=== PATIENT | male | born 1965 | race Caucasian/White ===

== ENCOUNTER 2019-08-31 10:46 | Inpatient (IN) ==
[2019-08-31] MEDS ORDERED: VANCOMYCIN 1 GM/NS 1 GM/250 ML IVPB IV ONE ×2 (11:17→16:00)
[2019-08-31] MEDS ORDERED: MORPHINE IV ONE (11:18)
[2019-08-31] MEDS ORDERED: ZOFRAN IV ONE (11:18)
[2019-08-31] MEDS ORDERED: DECADRON IV ONE (11:18)
[2019-08-31] MEDS: ROCEPHIN 1 GM in NS 50 ML IV ONE ×2 (11:42→11:43)
[2019-08-31 11:46] LABS: BASO# 0.03 X1000 (0.0-0.2); BASO% 0.2 % (0.0-0.8); EOS# 0.23 X1000 (0.0-0.7); EOS% 1.8 % (0.0-10.0); HEMOGLOBIN 14.7 g/dL (14.0-18.0); IMM GRAN# 0.03 X1000 (0.0-0.04); IMM GRAN% 0.2 % (0.0-0.5); LYMPH# 2.77 X1000 (1.2-3.4); LYMPH% 21.6 % (20.5-51.1); MCH 30.1 PG (27-31); MCHC 34.2 g/dL (33-37); MCV 88.1 FL (81-99); MONO# 1.37 X1000 (0.11-0.59); MONO% 10.7 % (1.7-9.3); MPV 9.5 FL (7.4-10.4); NEUT# 8.37 X1000 (1.4-6.5); NEUT% 65.5 % (42.2-75.2); PLT 273 X1000 (130-400); RBC 4.88 XMIL (4.7-6.1); RDW 12.7 % (11.5-14.5)
[2019-08-31 12:08] LABS: AGAP 14; ALKALINE PHOSPHATASE 117 U/L (32-122); BUN 13 mg/dL (8-22); CALCIUM 9.5 mg/dL (8.8-10.2); CHLORIDE 100 mmol/L (98-107); COSMO 277; CREATININE 0.8 mg/dL (0.7-1.2); ESTIMATED GFR > 60; GLUCOSE 121 mg/dL (70-104); GOT 18 U/L (10-34); GPT 20 U/L (10-44); POTASSIUM 3.8 mmol/L (3.5-5.1); SODIUM 138 mmol/L (136-145); TCO2 24 mmol/L (25-35); TOTAL PROTEIN 7.2 g/dL (6.3-8.3)
--- NOTE | 2019-08-31 12:21 | Diag Imaging Result Doc PS360 ---
EXAM: CT MAXILLOFACIAL(SINUS) W/O CO - 08/31/2019 HISTORY: facial cellulitis TECHNIQUE: CT facial bones without contrast. No contrast administered per request of the referring provider. COMPARISON: 04/10/2017 CT head, 07/12/2013 CT head FINDINGS: There are multiple ununited nasal bone fractures. These appear similar to the 12/10/2013 CT head, compatible with old ununited fracture deformities. (The 04/10/2017 CT head did not included the nasal bones.) There is no other facial bone fracture identified. There is smooth deviation of the nasal septum to the left consistent with long-standing change. The paranasal sinuses appear clear. Evaluation of subcutaneous soft tissues is somewhat limited without administered intravenous contrast. There is apparent relatively generalized subcutaneous soft tissue swelling/edema. There is a possible 0.6 cm fluid collection in the anterior subcutaneous tissues at the left of midline near the inferior base of the nose. There is no evidence of retrobulbar orbital edema. The globes of the orbits appear grossly intact. 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 Facial cellulitis. Possible 6 mm abscess in anterior subcutaneous tissues at the left of midline near the inferior base of the nose. Electronically signed by Beni Watkins 08/31/2019 12:19 PM
[2019-08-31] MEDS ORDERED: VANCOMYCIN IV PER PHARMACY MISC SCH (13:52)
[2019-08-31] MEDS ORDERED: ZOFRAN IV PRN (13:52)
[2019-08-31] MEDS ORDERED: MORPHINE IV PRN (13:52)
[2019-08-31] MEDS ORDERED: TYLENOL PO PRN (13:52)
--- NOTE | 2019-08-31 14:52 | HISTORY AND PHYSICAL ---
ADDENDUM Patient came in with a white count. He has had a kind of facial cellulitis diagnosed about a week ago, was placed on clindamycin but has steadily gotten worse. He feels like there is a ball or some sort of pain descending at the base of his nose all the way back behind his eye. Today, he came in with facial cellulitis of the nose, left naris, lip. There was no periorbital edema. CT shows a small, less than cm abscess at the base of the naris with associated inflammation. He will be admitted for facial cellulitis with developing abscess. We will get ENT consult. He has been placed on vancomycin and Zosyn. We will continue that for the time being and follow. Only active medical problems is history of hepatitis but none currently. This is a service admission. cc: Reed Calle MD
--- NOTE | 2019-08-31 15:03 | HISTORY AND PHYSICAL ---
PRIMARY CARE PROVIDER: No one. CHIEF COMPLAINT: Swelling of the upper lip and nose to the left. HISTORY OF PRESENT ILLNESS: Mr. Fracisco Collazo is a 54-year-old male with a medical history of hepatitis C who has been treated for chronic fungal infection of the fingernails, tobacco abuse, who states around a little over a week ago he developed swelling of the left upper lip into the nose. He presented to [facility] in June with complaints of a tooth abscess. He is really not clear on when he presented with certain complaints. At that time he was diagnosed with tooth abscess and was given Augmentin and apparently he could not afford it at that time. They changed it to amoxicillin now. They also ordered him lisinopril for elevated blood pressure. It is really unclear if it ever really got better, but he does state that the last week or over a week he has had worsening symptoms of the swelling over his left upper lip up into the nose. He presented to [facility] where he states they gave him an allergy shot. He claims that he has been having some fever and chills with it. He denies any drainage. He had a maxillofacial CT performed here which showed multiple old nasal bone fractures. Facial cellulitis and possible 6 mm abscess in the anterior subcutaneous tissue at the left of the midline near the inferior base of the nose. So, we will admit him, get him a consult with ENT and start him on IV antibiotics. PAST MEDICAL HISTORY: 1. Hepatitis C which he states he has been treated for in the past. 2. Chronic fingernail fungus infection. 3. Hypertension. However, he denies this and he has not been receiving treatment for it, which back in June, he was prescribed lisinopril, which he never had filled. PAST SURGICAL HISTORY: Right ear drum repair at the age of 13. SOCIAL HISTORY: Half pack per day smoker, started smoking at age 11. He drinks 3 or 4 beers every other day. Smokes marijuana about once a month. FAMILY HISTORY: Mother, no medical conditions. Father has COPD. ALLERGIES: Tylenol. HOME MEDICATIONS: None. REVIEW OF SYSTEMS: Fourteen point review of systems are complete and all were negative except for those mentioned above in the HPI. PHYSICAL EXAMINATION: VITAL SIGNS: Temperature 98 degrees, heart rate 69, respiratory rate 22, blood pressure 167/90, O2 saturation 98% on room air, 5 feet 9 inches 150 pounds, BMI is 22.2. GENERAL: Mr. Fracisco Collazo is a 54-year-old male. He is in no acute distress. He is able answer questions appropriately. HEENT: Atraumatic, normocephalic. There is swelling and cellulitis type appearance of the left upper lip that goes all the way to the nose. Nasal passages clear. Trachea midline. CARDIOVASCULAR: S1, S2. Regular rate and rhythm. No rubs, gallops, murmurs. No lower extremity edema. +2 dorsalis and radial pulses. Negative JVD or carotid bruits. PULMONARY: Clear to auscultate. Bilateral breath sounds. No accessory muscle use or work of breathing noted. GASTROINTESTINAL: Abdomen soft, nontender, nondistended, positive bowel sounds x4. EXTREMITIES: Moves all extremities equally. Full range of motion. NEUROLOGIC: A and O x3. Follows commands. Sensory is intact. SKIN: Warm, dry, intact. LABORATORY DATA: White blood cells 12,000, hemoglobin 14, hematocrit 43, platelet count 273,000. Sodium 138, potassium 3.8, BUN 13, creatinine 0.8, glucose 121, calcium 9.5, bilirubin 0.50, AST 18, ALT 20, albumin 4.0, serum lactate 1.6. IMAGING: Maxillofacial CT, multiple old nasal bone fractures, facial cellulitis, possible 6 mm abscess in the anterior subcutaneous tissues of the left of midline near the inferior base of the nose. ASSESSMENT AND PLAN: 1. Left facial cellulitis with possible abscess, left midline base of the nose at 6 mm in size. IV antibiotics, ceftriaxone and vancomycin has been initiated. ENT is consulted. Blood cultures ordered. Morphine for pain control. He did get a 1 time dose of Decadron in the ER. 2. Tobacco abuse. Cessation discussed. 3. Hypertension untreated at home. Back in June, he was prescribed for lisinopril. Currently waiting for home medications to be reconciled but he has not been taking anything at home. 4. History of hepatitis C. 5. Deep venous thrombosis prophylaxis with sequential compression devices. Dictated by CARIE Schultz for Reed Calle MD cc: CARIE Schultz MD
--- NOTE | 2019-08-31 17:33 | PROVIDER DOCUMENTATION ---
This chart was entered by Minerva Jeffries Scribe, acting as scribe for Nova Gan MD. HPI-General Adult - General Chief Complaint: Facial Pain Stated Complaint: FACIAL PAIN Time Seen by Provider: 08/31/19 11:04 Source: patient Allergies/Adverse Reactions: Patient Allergies Allergy/AdvReac Type Severity Reaction Status Date / Time acetaminophen Allergy ABDOMINAL Verified 07/12/19 10:20 PAIN Home Medications: Home Medication List Medication Instructions Recorded Confirmed Last Taken Type Amoxicillin 500 mg PO BID #14 tab 07/12/19 Unknown Rx LISINOpril [Prinivil] 20 mg PO DAILY #30 tab 07/12/19 Unknown Rx Clindamycin [Cleocin] 300 mg PO Q6HR #40 cap 08/25/19 Unknown Rx Ketorolac [Toradol] 10 mg PO Q6H PRN PRN #20 tab 08/25/19 Unknown Rx - History of Present Illness -Gen Adult Nature of Presenting Problems: Patient is a 54 year old male who presents with right side facial pain and swelling. States symptoms have been present for 1 week. Reports being seen at [facility] for the same symptoms. Does not report fever. Location of Pain/Injury: reports: face (right side face and upper lip) Pain Radiation: reports: no radiation Quality of Pain: reports: aching Severity: reports: mild Onset/Duration: reports: 1 week ago Timing: reports: still present Context/Activities at Onset: reports: light activity Associated Symptoms: reports: other (swelling to right side face and upper lip) Similar Symptoms Previously?: Yes Recently seen or treated by another doctor?: Yes Review of Systems - Adult - REVIEW OF SYSTEMS - ADULT Constitutional: reports: no symptoms reported Eyes: reports: no symptoms reported Ears, Nose, Mouth & Throat: reports: other (pain and swelling to right side face and upper lip). denies: sinus problem, mouth/dental pain Cardiovascular: reports: no symptoms reported Respiratory: reports: no symptoms reported Gastrointestinal: reports: no symptoms reported Genitourinary: reports: no symptoms reported Musculoskeletal: reports: no symptoms reported Integumentary: reports: no symptoms reported Neurological: reports: no symptoms reported Psychiatric: reports: no symptoms reported Endocrine: reports: no symptoms reported Hematologic/Lymphatic: reports: no symptoms reported Allergic/Immunologic: reports: no symptoms reported All Other Systems: Reviewed and Negative Past History - Adult - PAST MEDICAL HISTORY-ADULT Review of Records: reports: Old Records Reviewed, Nursing Assessment Review, Medications Reviewed, Social history reviewed & non-contributory. Major Childhood Illnesses: reports: denies history Cardiovascular: reports: HTN Respiratory: reports: denies history Gastrointestinal: reports: GERD Obstetrical/Gynecological: reports: denies history Genitourinary: reports: denies history Musculoskeletal: reports: denies history Neurological: reports: denies history Psychiatric: reports: denies history Endocrine/Immune: reports: Diabetes Other Conditions: reports: denies history - PRIOR SURGERIES/PROCEDURES Surgical/Procedure History: reports: none - IMMUNIZATION STATUS Childhood Immunizations: See Nurse Assessment Flu Vaccine: See Nurse Assessment - FAMILY HISTORY Family History: reviewed, not pertinent - SOCIAL HISTORY Smoking: cigarettes, greater than 1 pack/day Provider spent 3-5 mins advising pt. on dangers of tobacco.: Discussed manners to quit use, and f/u contacts for add'l counseling. Substance Use: denies Living Situation: family Physical Exam-General - PHYSICAL EXAM-ADULT Initial Vital Signs Reviewed: Yes - CONSTITUTIONAL General Appearance: alert, mild distress. negative: lethargic - EYES Eyes: PERRL/EOMI, pink conjunctivae - HEAD, EARS, NOSE, MOUTH & THROAT HENMT: moist mucous membranes, dental decay, maxillary tenderness (right), other (poor dentition. swelling to upper lip). negative: pharyngeal erythema - NECK Neck: non-tender, normal inspection. negative: lymphadenopathy - RESPIRATORY Respiratory: chest non-tender, lungs clear, normal breath sounds. negative: wheezing - CARDIOVASCULAR Cardiovascular: regular rate, rhythm. negative: tachycardia - GASTROINTESTINAL (ABDOMEN) Abdominal Exam: normal bowel sounds, non tender, soft. negative: rigid - MUSCULOSKELETAL Extremity: non-tender, normal inspection. negative: swelling - SKIN Integumentary: normal color, normal turgor, warm/dry, swelling (upper lip) - NEUROLOGIC Neurologic: grossly normal. negative: aphasia, facial droop - PSYCHIATRIC Psych/Mental Status: normal mood/affect, normal thought content, normal thought process, oriented x 3. 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 Hoyt's office stated he will be in surgery all day. Result Diagrams: 08/31/19 11:32 08/31/19 11:32 - CT/MRI 1 CT Study: Sinuses Impression: See EMR Report (EXAM: CT MAXILLOFACIAL(SINUS) W/O CO - 08/31/2019 HISTORY: facial cellulitis TECHNIQUE: CT facial bones without contrast. No contrast administered per request of the referring provider. COMPARISON: 04/10/2017 CT head, 07/12/2013 CT head FINDINGS: There are multiple ununited nasal bone fractures. These appear similar to the 12/10/2013 CT head, compatible with old ununited fracture deformities. (The 04/10/2017 CT head did not included the nasal bones.) There is no other facial bone fracture identified. There is smooth deviation of the nasal septum to the left consistent with long- standing change. The paranasal sinuses appear clear. Evaluation of subcuta neous soft tissues is somewhat limited without administered intravenous contrast. There is apparent relatively generalized subcutaneous soft tissue swelling/edema. There is a possible 0.6 cm fluid collection in the anterior subcutaneous tissues at the left of midline near the inferior base of the nose. There is no evidence of retrobulbar orbital edema. The globes of the orbits appear grossly intact. 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 Facial cellulitis. Possible 6 mm abscess in anterior subcutaneous tissues at the left of midline near the inferior base of the nose. Electronically signed by Beni Watkins 08/31/2019 12:19 PM 08/31/19 1219 Interpreting Physici an: Beni Watkins MD Dictated Date/Time: 08/31/19 1205 cc: Nova Gan MD; None,PCP) - CONSULTS/PCP/HOSPITALIST Notification #1 *Consult/PCP/Hospitalist*: Dr. Calle Time Discussed: 12:34 Reason/Comments: Dr. Gan consulted with Dr. Calle about patient. Consult Disposition: Will see in ED, Admit Departure - Departure Date of Disposition Decision: 08/31/19 Time of Disposition Decision: 12:35 DIAGNOSIS: Facial cellulitis, Nasal abscess Disposition: ADMITTED INPATIENT 09 Certified Medical Emergency: Emergent Condition: Stable - Critical Care Note This patient required my direct & personal management of CC.: No Attestation - Physician/ MEG Attestation Patient care was provided by Advanced Practice Provider:: No The physician spent face to face time with patient:: Yes Advanced Practice Provider documentation review:: Supervising physician onsite and consulted in the evaluation and care of this patient. The physician did have a face to face encounter with the patient. This chart was documented by the indicated scribe, (Minerva Jeffries Scribe) and accurately reflects the services I performed and decisions made by me, Nova Gan MD, as attested by the provider's signature.
[2019-09-01 07:12] LABS: BASO# 0.01 X1000 (0.0-0.2); BASO% 0.1 % (0.0-0.8); HEMATOCRIT 44.4 % (42.0-52.0); HEMOGLOBIN 14.9 g/dL (14.0-18.0); IMM GRAN# 0.03 X1000 (0.0-0.04); IMM GRAN% 0.2 % (0.0-0.5); LYMPH# 1.54 X1000 (1.2-3.4); LYMPH% 10.3 % (20.5-51.1); MCHC 33.6 g/dL (33-37); MCV 89.3 FL (81-99); MONO# 0.89 X1000 (0.11-0.59); MONO% 5.9 % (1.7-9.3); MPV 9.9 FL (7.4-10.4); NEUT# 12.51 X1000 (1.4-6.5); NEUT% 83.5 % (42.2-75.2); PLT 316 X1000 (130-400); RBC 4.97 XMIL (4.7-6.1); RDW 12.7 % (11.5-14.5); WBC 14.98 X1000 (4.8-10.8)
[2019-09-01 07:42] LABS: AGAP 10; ALB/GLOB RATIO 1.1; ALBUMIN 3.6 g/dL (3.5-5.0); ALKALINE PHOSPHATASE 100 U/L (32-122); BUN 20 mg/dL (8-22); CALCIUM 9.5 mg/dL (8.8-10.2); CHLORIDE 104 mmol/L (98-107); COSMO 287; CREATININE 0.9 mg/dL (0.7-1.2); ESTIMATED GFR > 60; GLUCOSE 155 mg/dL (70-104); GOT 11 U/L (10-34); GPT 16 U/L (10-44); POTASSIUM 4.2 mmol/L (3.5-5.1); SODIUM 141 mmol/L (136-145); TCO2 27 mmol/L (25-35); TOTAL BILIRUBIN 0.33 mg/dL (0.20-1.00)
[2019-09-01] MEDS: LAMISIL 1% CREAM TOP SCH ×2 (08:08→08:18)
[2019-09-01] MEDS: ROCEPHIN 1 GM in NS 50 ML IV SCH (09:27)
[2019-09-01] MEDS: VANCOMYCIN 1,700 MG in NS 250 ML IV SCH (09:36)
[2019-09-01] MEDS: NORCO-7.5 PO PRN (13:48)
--- NOTE | 2019-09-01 18:25 | PROGRESS NOTE ---
DATE: 09/01/2019 SUBJECTIVE: The patient has no major complaints. His pain is better but he still has swelling in his upper lip but much improved from yesterday. OBJECTIVE: Vital Signs: Blood pressure is 156/93, heart rate of 70, respiratory rate 16, temperature 98.2 degrees. Cardiovascular: Regular rate and rhythm. Pulmonary: Bilateral breath sounds clear to auscultation. Gastrointestinal: Abdomen was soft, nontender, nondistended. Bowel sounds are positive. LABORATORY DATA: White count 14, hemoglobin and hematocrit 14 and 44. Basic was normal. PROBLEM LIST: Facial cellulitis with nasal cellulitis, resolving. Continue antibiotics. We will plan to discharge him on doxycycline hopefully in the next 24 hours. I think his leukocytosis today is probably from the Decadron he received last night but that seems better. cc: Reed Calle MD
[2019-09-02] MEDS: VANCOMYCIN 1,700 MG in NS 250 ML IV SCH ×2 (04:15→23:19)
[2019-09-02 07:58] LABS: BASO# 0.03 X1000 (0.0-0.2); BASO% 0.2 % (0.0-0.8); EOS% 0.8 % (0.0-10.0); HEMATOCRIT 43.7 % (42.0-52.0); HEMOGLOBIN 14.4 g/dL (14.0-18.0); IMM GRAN# 0.04 X1000 (0.0-0.04); IMM GRAN% 0.3 % (0.0-0.5); LYMPH# 4.27 X1000 (1.2-3.4); LYMPH% 34.8 % (20.5-51.1); MCH 29.8 PG (27-31); MCV 90.3 FL (81-99); MONO# 0.84 X1000 (0.11-0.59); MONO% 6.8 % (1.7-9.3); MPV 9.6 FL (7.4-10.4); NEUT# 6.99 X1000 (1.4-6.5); NEUT% 57.1 % (42.2-75.2); PLT 288 X1000 (130-400); RBC 4.84 XMIL (4.7-6.1); RDW 12.9 % (11.5-14.5); WBC 12.27 X1000 (4.8-10.8)
[2019-09-02] MEDS: LAMISIL 1% CREAM TOP SCH (08:46)
[2019-09-02] MEDS: ROCEPHIN 1 GM in NS 50 ML IV SCH (09:41)
[2019-09-02] MEDS: NORCO-7.5 PO PRN (18:30)
--- NOTE | 2019-09-03 00:38 | PROGRESS NOTE ---
DATE: 09/02/2019 SUBJECTIVE: The patient has no major complaints. He feels like swelling is a bit worse today and he has got pain underneath his eye. OBJECTIVE: Vital signs: Blood pressure 181/94, heart rate 60, respiratory rate 18, temperature 98.1 degrees. He has been afebrile. Cardiovascular: Regular rate and rhythm. Pulmonary: Bilateral breath sounds clear to auscultation. Gastrointestinal: Soft, nontender, nondistended. Bowel sounds are positive. LABORATORY DATA: White count is down to 12, hemoglobin and hematocrit 14 and 43, platelets 288,000. ASSESSMENT: 1. Facial cellulitis with a nasal abscess. We will continue empiric antibiotics and follow closely. 2. History of hepatitis. Levels look appropriate and stable. DISPOSITION: Pending clinical status. cc: Reed Calle MD
[2019-09-03 07:44] LABS: BASO# 0.04 X1000 (0.0-0.2); BASO% 0.5 % (0.0-0.8); EOS# 0.18 X1000 (0.0-0.7); EOS% 2.1 % (0.0-10.0); HEMATOCRIT 45.6 % (42.0-52.0); HEMOGLOBIN 15.3 g/dL (14.0-18.0); IMM GRAN# 0.03 X1000 (0.0-0.04); IMM GRAN% 0.4 % (0.0-0.5); LYMPH# 3.74 X1000 (1.2-3.4); LYMPH% 43.6 % (20.5-51.1); MCH 30.1 PG (27-31); MCHC 33.6 g/dL (33-37); MCV 89.6 FL (81-99); MONO# 0.76 X1000 (0.11-0.59); MONO% 8.9 % (1.7-9.3); MPV 9.4 FL (7.4-10.4); NEUT# 3.82 X1000 (1.4-6.5); NEUT% 44.5 % (42.2-75.2); PLT 316 X1000 (130-400); RBC 5.09 XMIL (4.7-6.1); RDW 12.9 % (11.5-14.5); WBC 8.57 X1000 (4.8-10.8)
[2019-09-03 08:09] LABS: AGAP 10; BUN 15 mg/dL (8-22); CALCIUM 9.1 mg/dL (8.8-10.2); CHLORIDE 102 mmol/L (98-107); COSMO 281; CREATININE 0.9 mg/dL (0.7-1.2); ESTIMATED GFR > 60; GLUCOSE 107 mg/dL (70-104); POTASSIUM 4.1 mmol/L (3.5-5.1); SODIUM 140 mmol/L (136-145); TCO2 28 mmol/L (25-35)
[2019-09-03] MEDS: ROCEPHIN 1 GM in NS 50 ML IV SCH (11:13)
[2019-09-03] MEDS: LAMISIL 1% CREAM TOP SCH (11:13)
[2019-09-03] MEDS: NORCO-7.5 PO PRN ×2 (11:30→19:41)
[2019-09-03] MEDS: VANCOMYCIN 1,500 MG in NS 250 ML IV SCH (18:54)
--- NOTE | 2019-09-03 21:15 | Diag Imaging Result Doc PS360 ---
EXAM: CT MAXILLOFACIAL(SINUS) W/CON INDICATION: persistent abscess TECHNIQUE: COMPARISON: Unenhanced CT of the face and paranasal sinuses dated 08/31/2019 FINDINGS: The fluid collection seen anterior to the maxilla at the base of the nose near the midline on the previous study is confirmed with the addition of IV contrast indicating abscess. There is enhancement at its periphery. It measures 3.4 x 1.5 cm axially. There is a short tract extending from the abscess superiorly and laterally toward the left along the maxilla. There is surrounding soft tissue edema indicating cellulitis. The salivary glands are unremarkable. The paranasal sinuses and mastoid air cells remain clear. The bony structures are unchanged. IMPRESSION: Small fluid collection anterior to the maxilla at the base of the nose as described above with peripheral enhancement consistent with abscess. Electronically signed by Kel Gautam 09/03/2019 9:12 PM
[2019-09-04] MEDS: VANCOMYCIN 1,500 MG in NS 250 ML IV SCH ×2 (06:32→18:42)
[2019-09-04] MEDS ORDERED: VANCOMYCIN 1,500 MG in NS 250 ML IV SCH (06:54)
[2019-09-04] MEDS: LAMISIL 1% CREAM TOP SCH (08:39)
[2019-09-04] MEDS: ROCEPHIN 1 GM in NS 50 ML IV SCH (08:40)
--- NOTE | 2019-09-04 10:12 | CONSULTATION ---
DATE OF CONSULTATION: 09/04/2019 HISTORY OF PRESENT ILLNESS: This is a 54-year-old who was admitted 4 days ago after progression of upper lip and nose swelling, particularly on the left. He has been treated with p.o. antibiotics with this with progression. CT on admission revealed possible abscess at the base of the nose. He was admitted and begun on vancomycin and ceftriaxone. After initial improvement, he had progression with increased pain and swelling. He had a repeat CT scan which did reveal an abscess at the base of the nose with possible extension in left anterior maxilla. We were asked to re-evaluate. PAST MEDICAL HISTORY: Reviewed. SOCIAL HISTORY: Reviewed. FAMILY HISTORY: Reviewed. REVIEW OF SYSTEMS: Noted. PHYSICAL EXAM: Constitutional: No acute distress. Nose: Edema at the base of columella. Nasal vestibule clear. Oral cavity: Pharynx with edema of upper lip. Gingival buccal sulcus anteriorly with fullness, tenderness. No drainage noted. Mild tenderness over anterior maxilla. Neck: No adenopathy. IMPRESSION: Abscess base of nose pre maxilla, left. Probable dental origin. This is progressed on intravenous antibiotics. I have discussed and will schedule incision and drainage, nasal facial abscess. Patient understands this could be dental origin. He understands he could need further surgery. cc: Bolivar Mcdonough MD
--- NOTE | 2019-09-04 14:47 | PROGRESS NOTE ---
DATE: 09/04/2019 INTERVAL HISTORY: Mr. Collazo was not pleased with the care from previous physician and so I was requested to take care of him. OVERNIGHT EVENTS: Mr. Collazo got a repeat CT scan of facial bones, which had suggested persistent abscess and possibly cellulitis, which extended towards the maxillary sinus. ENT has been reconsulted. SUBJECTIVE: Mr. Collazo is complaining of some discomfort in the left side of the cheek bone and nose area, as well as difficulty breathing through left naris. Denies any fevers, chills, chest pain, shortness of breath or cough. We discussed about management of hypertension. We discussed about management of abscess. I answered all of his questions. VITALS: Temperature of 98.1 degrees, pulse 84, respiratory rate 16, blood pressure 182/94. He is saturating 100% on room air. PHYSICAL EXAMINATION: Mr. Collazo is not in any acute distress. Oral cavity is moist. He has several missing teeth and poor oral hygiene. He also has some tenderness over upper lip, especially on the left side. I could see some edema of the floor of left nasal cavity. There is some tenderness on the left side of upper lip as well. Pupils are bilaterally and equal reacting to light. Mild tenderness over the left maxillary sinus. No cervical lymphadenopathy. Air entry bilaterally equal. No wheeze, rhonchi, crackles. Cardiovascular exam S1, S2 normal. No murmur, rub or gallop. Abdomen is soft, nontender. No lower extremity edema. He is alert and oriented x3. LABORATORY: Labs suggestive of WBC of 8,000, however, it was done yesterday. No new labs today. No positive microbiological data. IMAGING: Maxillofacial CT repeated yesterday had small fluid collection anterior to the maxilla at the base of the nose with peripheral enhancement consistent with abscess. ASSESSMENT AND PLAN: 1. Facial cellulitis with abscess on the floor of left nasal cavity. Continue intravenous vancomycin and intravenous ceftriaxone. ENT has been reconsulted and is planning incision and drainage of his abscess. If the surgery goes well, my plan is to discharge him on oral clindamycin if cleared by ENT. 2. Essential hypertension. Start patient on oral losartan and I will keep him on intravenous hydralazine as needed. 3. Hepatitis C. Patient reports that he was treated after a total of 3 months of therapy. DISPOSITION: Pending surgical intervention. cc: Ravin Xiong MD
[2019-09-04] MEDS ORDERED: FENTANYL ONE ×2 (15:24→17:20)
[2019-09-04] MEDS ORDERED: QUELICIN (DOSE) ONE (15:25)
[2019-09-04] MEDS ORDERED: ZEMURON ONE (15:25)
[2019-09-04] MEDS ORDERED: ROBINUL ONE (15:26)
[2019-09-04] MEDS ORDERED: XYLOCAINE-MPF 2% ONE (15:26)
[2019-09-04] MEDS ORDERED: DIPRIVAN 1% ONE (15:27)
[2019-09-04] MEDS ORDERED: ZOFRAN ONE (16:44)
[2019-09-04] MEDS ORDERED: LABETALOL (DOSE) ONE (17:12)
[2019-09-04] MEDS: COZAAR PO SCH ×2 (17:22→18:45)
[2019-09-04] MEDS ORDERED: LABETALOL ONE (17:31)
[2019-09-04] MEDS: APRESOLINE ONE ×4 (17:31→18:41)
[2019-09-04] MEDS: DILAUDID ONE ×7 (17:39→18:43)
[2019-09-04] MEDS ORDERED: BLISTEX MEDICATED BERRY LIP BALM TOP PRN (18:36)
--- NOTE | 2019-09-04 20:01 | OPERATIVE NOTE ---
PROCEDURE DATE: PREOPERATIVE DIAGNOSIS: Facial abscess. POSTOPERATIVE DIAGNOSIS: Facial abscess. PROCEDURE PERFORMED: Incision and drainage of left facial abscess. ANESTHESIA: General. SURGEON: Dr. Bolivar Mcdonough. INFORMED CONSENT: The risks, benefits, and alternatives to surgery were discussed with the patient prior to signing the operative permit. OPERATION: The patient was taken to the operating room and placed in supine position. General orotracheal anesthesia was induced without difficulty. The usual face prep and drape were applied. Inspection revealed upper lip edema, left facial edema with firmness, fullness just lateral to the nose. Gingival buccal sulcus was full at midline. With the lip retracted superiorly, cautery with setting of 15 was used to make a 2.5 cm horizontal incision in the buccal mucosa of the lip [*] through the muscular layers. This was just outside the sulcus where we encountered an abscess cavity with seropurulent fluid. This was cultured aerobically and anaerobically and collected for Gram stain. Then with hemostatic dissection, this abscess cavity was enlarged and opened up lateral to the nose with a hemostat with scant additional fluid collected. We then irrigated this wound copiously, placed a [place] drain to its depths, and sutured this to the lip with a 2-0 silk. The patient was then awakened and sent to recovery room in good condition. cc: Bolivar Mcdonough MD
[2019-09-04] MEDS ORDERED: MORPHINE IV ONE (21:57)
[2019-09-04] MEDS: LR 1,000 ML IV SCH (22:36)
[2019-09-04] MEDS: VISINE OPH DROPS BOTH EYES PRN (22:53)
[2019-09-04] MEDS: LACRI-LUBE OPH OINT BOTH EYES PRN (22:54)
[2019-09-05] MEDS: VISINE OPH DROPS BOTH EYES PRN (01:26)
[2019-09-05] MEDS: NORCO-7.5 PO PRN ×4 (01:27→22:35)
[2019-09-05] MEDS: LACRI-LUBE OPH OINT BOTH EYES PRN (01:27)
[2019-09-05 05:54] LABS: AGAP 10; CHLORIDE 102 mmol/L (98-107); GLUCOSE 108 mg/dL (70-104); SODIUM 140 mmol/L (136-145); TCO2 28 mmol/L (25-35)
[2019-09-05 05:55] LABS: BUN 11 mg/dL (8-22); COSMO 279; CREATININE 0.9 mg/dL (0.7-1.2); ESTIMATED GFR > 60
[2019-09-05] MEDS: LR 1,000 ML IV SCH (06:17)
[2019-09-05] MEDS: VANCOMYCIN 1,500 MG in NS 250 ML IV SCH (06:37)
[2019-09-05] MEDS: COZAAR PO SCH (08:48)
[2019-09-05] MEDS: ROCEPHIN 1 GM in NS 50 ML IV SCH (08:48)
[2019-09-05] MEDS: LAMISIL 1% CREAM TOP SCH (08:48)
[2019-09-05] MEDS: APRESOLINE IV PRN ×2 (08:51→21:58)
[2019-09-05] MEDS ORDERED: LR 1,000 ML IV SCH (10:43)
--- NOTE | 2019-09-05 11:04 | PROGRESS NOTE ---
DATE: 09/05/2019 SUBJECTIVE: The patient is 1 day status post incision and drainage of facial abscess. Suspect this is probable dental origin. Gram stain negative cultures pending. Mr. Collazo states he feels better today/ face was tender. PHYSICAL EXAMINATION: [place] drain removed. Moderate edema, upper lip. No expressible purulence. No induration. IMPRESSION: Postoperative day 1 improved. Cultures pending. We will advance. Would continue IV antibiotics at least 24 hours. cc: Bolivar Mcdonough MD
--- NOTE | 2019-09-05 12:19 | PROGRESS NOTE ---
DATE: 09/05/2019 INTERVAL HISTORY: Mr. Collazo underwent incision and drainage of left facial abscess yesterday, which he tolerated well. Overnight, he did complain of some itchiness in his eyes for which he was started on ointment. In the morning time, he is feeling better. He denies any chest pain, shortness of breath, or cough. VITALS: Temperature 98.7 degrees, pulse 60, respiratory rate 20, blood pressure 185/96, saturating 99% on room air. PHYSICAL EXAMINATION: Oral cavity is moist. I could see about a 1 x 1 cm incision on the buccal mucosal aspect of upper lip. There is swelling of the upper lip and mild tenderness. Poor dental hygiene. No pharyngeal congestion. Air entry bilaterally equal. No wheeze, rhonchi, or crackles. S1, S2 normal. No murmur, rub, or gallop. Abdomen is soft, nontender. No lower extremity edema. He is alert and oriented x3. LABS: No CBC today. BMP suggestive of BUN of 11, creatinine 0.9. His vancomycin level was slightly elevated. MICROBIOLOGY: No positive data so far. IMAGING: No new imaging. ASSESSMENT AND PLAN: 1. Facial cellulitis with abscess on the floor of the left nasal cavity, status post incision and drainage. I will continue intravenous vancomycin and ceftriaxone. Follow up final culture results and possibly we will discharge him in the next 24 hours on oral clindamycin. 2. Essential hypertension. Continue oral losartan and intravenous hydralazine as needed. I discussed with him about increasing his hypertension medication as well as outpatient workup for secondary causes of hypertension. 3. Hepatitis C, status post treatment for 3 months. He could not tell me the name. He wanted me to check his HCV RNA. However, I discussed with him that it could take several days for the test results to come back. 4. Disposition. I am anticipating discharge in the next 24 hours. Plan of care discussed with the patient. All of his questions were answered. I am awaiting to talk with ENT doctor. cc: Ravin Xiong MD
[2019-09-05] MEDS ORDERED: CITRATE OF MAGNESIA PO ONE (23:51)
[2019-09-06] MEDS: APRESOLINE IV PRN (06:29)
[2019-09-06 07:35] VITALS: BP 159/89
[2019-09-06] MEDS ORDERED: MIRALAX PO SCH (09:00)
[2019-09-06] MEDS ORDERED: COZAAR PO SCH (09:00)
[2019-09-06] MEDS ORDERED: CLEOCIN PO SCH (09:30)
[2019-09-06] MEDS: LAMISIL 1% CREAM TOP SCH (09:56)
[2019-09-06] MEDS ORDERED: FLU VACCINE IM ONE (09:58)
--- NOTE | 2019-09-06 15:22 | DISCHARGE SUMMARY ---
ADMISSION DATE: 08/31/2019 DISCHARGE DATE: 09/06/2019 DISCHARGE DISPOSITION: Home. DISCHARGE CONDITION: Hemodynamically stable. SUMMARY: Mr. Collazo denies any chest pain, shortness of breath, nausea, or vomiting. He is breathing better. His lip swelling is decreasing. He denies any oral pain. I discussed with him about followup. I discussed with him about blood pressure management, dietary compliance, and I answered all of his questions. DISCHARGE DIAGNOSES: 1. Facial cellulitis. 2. Nasal abscess on the floor of the left nasal cavity. 3. Essential hypertension. 4. History of hepatitis C status post 90 days of treatment. OTHER DIAGNOSES: 1. History of chronic fingernail fungus infection. 2. History of hepatitis C status post treatment. 3. History of essential hypertension. 4. History of active tobacco abuse. 5. History of active alcohol abuse. DISCHARGE MEDICATIONS: 1. Clindamycin 300 mg every 6 hours, 25 capsules. 2. Losartan 100 mg daily, 60 tablets. PHYSICAL EXAMINATION: Vital Signs: At the time of discharge temperature 97.7 degrees, pulse 73, respiratory rate 20, blood pressure 159/89, saturating 97% on room air. General: Mr. Collazo does not appear in any acute distress. HEENT: Oral cavity is moist. He has about a 2 x 2 cm open incision the inner aspect of his upper lip on the buccal mucosa where incision and drainage was performed. He has slight edema of the left-sided nasal cavity floor. Lungs: Air entry bilaterally equal. No wheeze, rhonchi, or crackles. Cardiovascular: S1, S2 normal. No murmur or gallop. Abdomen: Soft, nontender. Extremities: No lower extremity edema. He has a chronic toenail fungal infection. Neurologic: He is alert and oriented x3. LABS: At the time of hospital admission and discharge: His WBC was 12,000 on presentation which improved to 8000 at the time of discharge, hemoglobin 15.3, platelet 316,000. BUN is 11, creatinine 0.9, potassium is 4, sodium 140. MICROBIOLOGY: Blood culture did not have any growth. Abscess fluid, 1 of the 3, was growing diphtheroids. SIGNIFICANT IMAGING DURING HOSPITAL ADMISSION: 1. 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 There was generalized subcutaneous soft tissue swelling, edema, and possible 0.6 cm fluid collection in the anterior subcutaneous tissue on the left of the midline near the inferior base of the nose. 2. Repeat maxillofacial CT on September 02 had small fluid collection anterior to the maxilla at the base of the nose with peripheral enhancement consistent with abscess. PROCEDURES DURING HOSPITAL ADMISSION: 09/04/2019, the patient underwent incision and drainage of the left facial abscess. CONSULTATIONS DURING HOSPITAL ADMISSION: ENT, Dr. Mcdonough. HOSPITAL COURSE SUMMARY: Mr. Collazo is a 54-year-old man who initially presented on 08/31/2019 with chief complaints of swelling of the upper lip and nose on the left side. About a week ago he had started developing swelling of the left upper lip and nose, and had gone to [facility]. At that time, he was diagnosed with tooth abscess and was given Augmentin, which he could not afford. Later on, it was changed to amoxicillin. However, since 1 week his symptoms had been bothering him and antibiotics did not help. It was unclear whether he took the antibiotics or not. His swelling of the left upper lip had started getting worse and it was involving the left side of the nose as well. Associated with that, he had fevers and chills, so he decided to come to the hospital. In the emergency room, he was found to have temperature of 98 degrees, pulse of 69, respiratory rate of 22, blood pressure of 167/90, and he was saturating 98% on room air. He, however, had leukocytosis of 12.8. A CT scan maxillofacial bones had suggested possible abscess. He was started on intravenous antibiotics and ENT was consulted. Initially, conservative approach was practiced. However, even after 48 hours of antibiotics, the patient's clinical condition did not improve and his symptoms started getting in fact worse and his pain extended to involve the left maxilla. So, a CT scan was repeated which had suggested persistent abscess. Eventually ENT had decided to perform incision and drainage of the abscess, which patient tolerated well. After the surgery, the patient remained on IV antibiotics for 24 to 48 hours. The cultures grew only diphtheroids. At the time of discharge, the patient's antibiotics were changed to clindamycin. He was advised to have outpatient ENT follow-up. While inside the hospital, he also had issues with essential hypertension. He was counseled about dietary modification, low-salt diet, and was given a prescription of losartan. He was counseled about need for outpatient followup as he could need addition of a second medication and workup for secondary hypertension. He understood it. TIME SPENT: There were 35 minutes spent discharging the patient. I sat down with the patient. I had extensively counseled him about need for proper dental hygiene. I discussed with him about dietary modification to address his essential hypertension. I discussed with him about the possible dental nature of his infection need to complete antibiotics. I also told him that we would provide him a list of primary care providers at the time of discharge that he should establish care with. I also discussed with him about possible causes of secondary hypertension, if his hypertension remains uncontrolled. He understood it. All of his questions were answered. Written counseling for smoking and alcohol cessation was provided to him. cc: Ravin Xiong MD MTDD
== END 2019-09-06 12:00 | disposition home or self-care (01) | DRG 581 ==
LOC: P.ED 10:46 → 4N 13:29 → SUATTDRO 13:29
PROVIDERS: ATTEND Internal Medicine